=== PATIENT | female | born 1990 | race American Indian/Alaskan Native ===

== ENCOUNTER 2021-06-23 11:41 | Outpatient (CLI) | payer BC, MEDICAID ==
--- NOTE | 2021-06-23 14:19 | Vascular Lab Report ---
DUPLEX DOPPLER LOWER EXTREMITY VEINS, BILATERAL INDICATION / CLINICAL INFORMATION: LE edema and pain TECHNIQUE: Duplex doppler imaging was performed through the veins of both lower extremities using naman ous compression and other maneuvers. COMPARISON: None available. FINDINGS: RIGHT COMMON FEMORAL VEIN: Negative. RIGHT FEMORAL VEIN: Negative. RIGHT POPLITEAL VEIN: Negative. RIGHT CALF VEINS: Negative. LEFT COMMON FEMORAL VEIN: Negative. LEFT FEMORAL VEIN: Negative. LEFT POPLITEAL VEIN: Negative. LEFT CALF VEINS: Negative. ADDITIONAL FINDINGS: None. IMPRESSION: No sonographic evidence for DVT in either lower extremity. Signer Name: Josias Roberts MD Signed: 06/23/2021 2:14 PM Workstation Name: [id number]
[2021-06-23 15:07] VITALS: BP 117/78
== END 2021-06-23 15:58 | disposition home or self-care (01) ==
LOC: TRG 11:41 → APU 11:43 → TRG 15:58
PROVIDERS: ATTEND Obstetrics & Gynecology
DX: O26.893 Other specified pregnancy related conditions, third trimester (principal); M79.89 Other specified soft tissue disorders; M79.662 Pain in left lower leg; Z3A.35 35 weeks gestation of pregnancy
CPT/HCPCS: 93970